=== PATIENT | male | born 1940 | race Caucasian/White ===

== ENCOUNTER 2024-04-11 12:37 | Outpatient (CLI) | payer MEDICARE, OTHER, SELFPAY ==
--- NOTE | 2024-04-11 12:49 | XRR_ITS ---
PROCEDURE INFORMATION: Exam: XR Chest Exam date and time: 04/11/2024 1:00 PM Age: 83 years old Clinical indication: Cough and dyspnea and shortness of breath; Cough and SOB x a week and half. ; Additional info: Cough/dyspnea TECHNIQUE: Imaging protocol: Radiologic exam of the chest. Views: 2 views. COMPARISON: No relevant prior studies available. FINDINGS: Lungs: Lungs are hyperexpanded compatible with COPD. Subtle hazy right basilar opacity, possibly also in the right mid lung versus confluence of shadows. Pleural spaces: No pleural effusion. No pneumothorax. Heart/Mediastinum: Cardiomediastinal silhouette is normal. Aortic calcifications. Bones/joints: No acute abnormality. XR/XR chest 2V* [id number] IMPRESSION: Lungs are hyperexpanded compatible with COPD. Subtle hazy right basilar opacity, possibly also in the right mid lung versus confluence of shadows, may reflect infectious/inflammatory process.
== END 2024-04-11 12:38 | disposition home or self-care (01) ==
PROVIDERS: PCP Nurse Practitioner Family; Visit Provider Nurse Practitioner Family
DX: R05.8 Other specified cough (principal); R06.00 Dyspnea, unspecified; R91.8 Other nonspecific abnormal finding of lung field; I70.0 Atherosclerosis of aorta
CPT/HCPCS: 71046